=== PATIENT | male | born 1980 | race Two or more races ===

== ENCOUNTER 2021-10-11 14:41 | Emergency (ER) | payer OTHER ==
[~2021-10-11] VITALS: Ht 165.1 cm; Wt 73.9 kg
[2021-10-11] MEDS ORDERED: OSEL75CA PO (19:36)
== END 2021-10-11 19:49 ==
LOC: ER 14:41
DX: J10.1 Influenza due to other identified influenza virus with other respiratory manifestations (principal); R50.9 Fever, unspecified; Z20.822 Contact with and (suspected) exposure to COVID-19